=== PATIENT | male | born 2005 | race African-American/Black ===

== ENCOUNTER 2025-02-24 20:28 | Emergency (ER) | payer SELFPAY ==
--- NOTE | ~2025-02-24 | CT_ITS ---
CT abdomen pelvis w con Ordering provider: Ilia Wallace History: 19 years Male with . abd pain . Comparison: None. Technique: CT abdomen and pelvis with IV and without oral contrast. Automated exposure control and it erative reconstruction technique were employed. The dose-length product was 182.64 mGy-cm. 100 mL Omn ipaque 350 was given IV. Findings: VISUALIZED LOWER CHEST: Normal. UPPER ABDOMINAL ORGANS: Liver: Normal. Gallbladder: Normal. Spleen: Normal. Stomach/duodenum: Normal. Pancreas: Normal. Adrenals: Normal. Kidneys: Normal. PELVIC ORGANS: The bladder is underfilled. BOWEL AND MESENTERY: Colon: No evidence of diverticulitis. Fecal material is seen in the colon. Appendix is not demonstrated. Small Bowel: Normal. No obstruction. Peritoneum/mesentery: No free air or free fluid. No mesenteric lymphadenopathy. RETROPERITONEUM: Normal aorta. No retroperitoneal lymphadenopathy. MUSCULOSKELETAL: Superficial soft tissues: The superficial soft tissues are normal. Bones: Normal spine. IMPRESSION: 1. No evidence of appendicitis, diverticulitis or intestinal obstruction. Clinical correlation advis ed. 2. Constipation. Reviewed, dictated and finalized at location A. IMPRESSION: 1. No evidence of appendicitis, diverticulitis or intestinal obstruction. Clin ical correlation advised. 2. Constipation.
--- OUTSIDE RECORDS SUMMARY | 2025-02-24 20:30 | XMS_ITS | Clinical Summary ---
Author Organization [facility] Address [address] [place] [address] Care Team Providers Care Dealer Card Room Name Role Phone Unavailable Primary Care Provider Unavailabl e Source Comments [facility],non-owned Affiliates and Associated Physician Practices is amultiple site organization consisting of ambulatory clinics and hospital sitesin [place], [place], [place] and [place]. This disclosure is being madepursuant to the Care Everywhere program and may not contain all information available regarding this patient. Last updated 18.[facility] Allergies No known active allergies Medications * Be aware that medications may not be up to date on this document. Alwaysverify current medications with the patient. 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 Gender Identity Not on file Sexual Orientation Not on file Last Filed Vital Signs Vital Sign Reading Time Taken Comments Blood Pressure 108/72 02/25/2010 10:27 PM CDT Pulse 96 02/25/2010 10:27 PM CDT Temperature 36.8 C (98.2 F) 02/25/2010 10:27 PM CDT Respiratory Rate 26 02/25/2010 10:27 PM CDT Oxygen Saturation - - Inhaled Oxygen Concentration - - Weight 19.2 kg (42 lb 5.3 oz) 02/25/2010 10:27 P M CDT Height - - Body Mass Index - - Plan of Treatment Health Maintenance Due Date Last Done Comments HIV SCREENING 2019 HPV VACCINE (1 - Male 3-dose series) 2019 MENINGOCOCCAL (Group B) VACC INE SHARED DECISION-MAKING (1 of 2 - Standard) 2020 HEPATITIS C SCREENING 09/23/2022 DTAP/TDAP/TD VACCINES (1 - Tdap) 2023 HEPATITIS B VACCINE (1 of 3 - 19+ 3-dose series) 2023 COVID-19 VACCINE (2023-2 5 season) 2024 DEPRESSION SCREENING 08/17/2024 INFLUENZA VACCINE (#1) 2025 ZOSTER VACCINE (1 of 2) 2054 HIB VACCINE Aged Out No longer eligi ble based on patient's age to complete this topic MENINGOCOCCAL GROUPS A/C/Y/W VACCINE Aged Out No longer eligible b ased on patient's age to complete this topic PNEUMOCOCCAL VACCINE Aged Out No long er eligible based on patient's age to complete this topic
--- OUTSIDE RECORDS SUMMARY | 2025-02-24 20:30 | XMS_ITS | Continuity of Care Document ---
Author Organization [facility] Address [address] [place] [address] Phone Care Team Providers Care Art Model Name Role Phone Nolen OD, Lemuel Unavailable Unavailable Procedures Procedure Date Eye Exam, New Patient Refraction Advance Directives Directive Yes / No Effective Date File Name No Information Encounters Encounter Description Practice Location Reason(s) For Visit Diagnoses Date Provider Providers Copied on Encounter [facility], [address], [place], [place], [id number], [place] tel:[phone] [facility] No Information Apr-0 2-201 0 Nolen OD Lemuel. [address] , [address], [place], [address], [place]. tel:[phone] Family History Family Member Type Diagnosis Age At Onset No Information Payers Payer name Insurance type Covered alliance party ID Authoriza timelissa(s) Medicaid [facility] [id number] Social History Type Description Quantity Date Captured Comments Sex Male Smoking Status No Information Chief Complaint And Reason For Visit No Information Reason For Referral Reason For Referral No Information History Of Present Illness Encounter Date Complaint History Of Prese nt Illness No Information Functional Status Date Functional Assessmen t No Information Instructions Date Instruction Additional Infor mation No Information Assessments Type Assessment Date No Information Patient Care Teams Name Effective Dates (start - stop) Status Members No Information
[2025-02-24 20:32] VITALS: BP 139/71; PULSE 91; RESP 17; TEMP 36.2; O2SAT 100
[2025-02-24 20:53] LABS: Hematocrit 43.8 % (42.0-52.0); Hemoglobin 14.1 g/dL (14.0-18.0); Immature Granulocyte Percent A 0.2 % (0-0.5); Lymphocytes Absolute Auto 1.34 K/mm3 (0.9-3.2); Mean Corpuscular HGB Conc 32.2 g/dl (32-36); Mean Corpuscular Hemoglobin 27.8 pg (26-34); Mean Corpuscular Volume 86.4 fl (80-100); Nucleated Red Blood Cells Absolute Auto 0.000 K/mm3 (0.0-0.012); Nucleated Red Blood Cells Perc 0.0 % (0.0-0.2); Platelet Count Result 191 k/mm3 (150-375); Red Blood Count 5.07 M/mm3 (4.6-6.20); White Blood Count 6.5 K/mm3 (4.5-10.0)
[2025-02-24 21:10] LABS: Alanine Aminotransferase 21 U/L (6-50); Albumin Level 4.7 g/dL (3.5-5.1); Alkaline Phosphatase 79 U/L (38-126); Anion Gap 13 mmol/L (4-12); Aspartate Amino Transferase 32 U/L (17-59); Bilirubin,Total 1.2 mg/dL (0.2-1.3); Blood Urea Nitrogen 12 mg/dL (9-20); Calcium 9.8 mg/dL (8.4-10.2); Carbon Dioxide 20 mmol/L (22-30); Chloride 105 mmol/L (98-107); Estimated CRCL calculation 92 ml/min; Estimated Glomerular Filt Rate > 60; Glucose 99 mg/dL (65-110); Lipase 28 U/L (23-300); Potassium 3.6 mmol/L (3.4-5.0); Sodium 138 mmol/L (137-145); Total Protein 8.4 g/dL (6.3-8.2)
[2025-02-24] MEDS: SODIUM CHLORIDE 0.9% IV 1,000 ML 999 ML IV CONT (23:27)
--- OUTSIDE RECORDS SUMMARY | 2025-02-24 23:29 | XMS_ITS | Clinical Summary ---
Author Organization [facility] Address [address] [place] [address] Care Team Providers Care Fullerette Name Role Phone Unavailable Primary Care Provider Unavailabl e Source Comments [facility],non-owned Affiliates and Associated Physician Practices is amultiple site organization consisting of ambulatory clinics and hospital sitesin [place], [place], [place] and [place]. This disclosure is being madepursuant to the Care Everywhere program and may not contain all information available regarding this patient. Last updated 18.[employer] [facility] Allergies No known active allergies Medications * Be aware that medications may not be up to date on this document. Alwaysverify current medications with the patient. 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
--- OUTSIDE RECORDS SUMMARY | 2025-02-24 23:29 | XMS_ITS | Continuity of Care Document ---
Author Organization [facility] Address [address] [place] [address] Phone Care Team Providers Care Milling Operator Name Role Phone Nolen OD, Lemuel Unavailable Unavailable Procedures Procedure Date Eye Exam, New Patient Refraction Advance Directives Directive Yes / No Effective Date File Name No Information Encounters Encounter Description Practice Location Reason(s) For Visit Diagnoses Date Provider Providers Copied on Encounter [facility], [address], [place], [place], [id number], [place] tel:[phone] [facility] No Information Apr-0 2-201 0 Nolen OD Lemuel. [address] , [address], [place], [address], [place]. tel:[phone] Family History Family Member Type Diagnosis Age At Onset No Information Payers Payer name Insurance type Covered constitution party ID Authoriza timelissa(s) Medicaid [facility] [id number] Social History Type Description Quantity Date Captured [...]
--- NOTE | 2025-02-24 23:36 | ED_ITS ---
HPI - Abdominal Pain General Chief Complaint: Abdominal Pain <BLU Smith Last Filed: 03/06/25 17:08> Stated Complaint: INTERMITTENT ABD PAIN <BLU Smith Last Filed: 03/06/25 17:08> Time Seen by Provider: 02/24/25 23:15 <BLU Smith Last Filed: 03/06/25 17:08> Source: patient <BLU Smith Last Filed: 03/06/25 17:08> Mode of arrival: EMS <BLU Smith Last Filed: 03/06/25 17:08> Limitations: no limitations <BLU Smith Last Filed: 03/06/25 17:08> History of Present Illness HPI narrative: This is a 19-year-old male that presents to the emergency department for nausea and vomiting. Reports associated sore throat. Reports some reflux. Denies fevers, cough. <Carla Robison PA-C - Last Filed: 03/06/25 17:08> Related Data Allergies/Adverse Reactions: Allergies Allergy/AdvReac Type Severity Reaction Status Date / Time No Known Allergies Allergy Mild Verified 02/24/25 20:29 <BLU Smith Last Filed: 03/06/25 17:08> Review of Systems 2 Review of Systems: All systems reviewed & are unremarkable except as noted in HPI and below <BLU Smith Last Filed: 03/06/25 17:08> [facility], [facility] Past Medical History Medical History: Medical History (Updated 02/26/25 @ 00:00 by Background Daemon) No active medical problems <BLU Smith Last Filed: 03/06/25 17:08> Exam 2 Narrative: GENERAL: Well-appearing, well-nourished, and in no acute distress. HEAD: Normocephalic, atraumatic. EYES: EOMI. ENT: Nares clear, no rhinorrhea or epistaxis. Mucous membranes moist. Oropharynx with tonsillar hypertrophy, erythema and exudate, no other lesions. Bilateral TMs pearly dennis non-bulging NECK: Supple. No adenopathy or masses. CHEST: Clear to auscultation. No respiratory distress. No wheezes rales or rhonchi HEART: Regular rate and rhythm. No murmur heard. Normal peripheral pulses. ABDOMEN: Soft, nontender, nondistended, normal active bowel sounds. EXTREMITIES: Normal range of motion. No edema. SKIN: Warm, dry, no rash. NEURO: No focal deficits. Alert and oriented x3. PSYCH: Normal mood and affect <Carla Robison PA-C - Last Filed: 03/06/25 17:08> Course JUNIOR ACCOUNTANT BOOKKEEPER/PA Physician Supervision For this patient encounter, I reviewed the JUNIOR ACCOUNTANT BOOKKEEPER or PA documentation, treatment plan, and medical decision making and had [id number] time with this patient. I performed all aspects of the MDM as documented. <Ilia Wallace MD - Last Filed: 02/25/25 02:05> Vital Signs Vital signs: Vital Signs Temperature 97.1 F L 02/24/25 20:32 Pulse Rate 91 02/24/25 20:32 Respiratory Rate 17 02/24/25 20:32 Blood Pressure 139/71 02/24/25 20:32 Pulse Oximetry 100 02/24/25 20:32 Oxygen Delivery Room Air 02/24/25 20:32 Temperature 97.1 F L 02/24/25 20:32 Pulse Rate 83 02/25/25 02:31 Respiratory Rate 13 02/25/25 02:31 Blood Pressure 133/74 02/25/25 02:31 Pulse Oximetry 100 02/25/25 02:31 Oxygen Delivery Room Air 02/24/25 20:32 <Carla Robison PA-C - Last Filed: 03/06/25 17:08> Vital Signs Temperature 97.1 F L 02/24/25 20:32 Pulse Rate 91 02/24/25 20:32 Respiratory Rate 17 02/24/25 20:32 Blood Pressure 139/71 02/24/25 20:32 Pulse Oximetry 100 02/24/25 20:32 Oxygen Delivery Room Air 02/24/25 20:32 Temperature 97.1 F L 02/24/25 20:32 Pulse Rate 83 02/25/25 02:31 Respiratory Rate 13 02/25/25 02:31 Blood Pressure 133/74 02/25/25 02:31 Pulse Oximetry 100 02/25/25 02:31 Oxygen Delivery Room Air 02/24/25 20:32 <Ilia Wallace MD - Last Filed: 02/25/25 02:05> MDM - Abdominal Pain MDM Narrative Medical decision making narrative: Patient presents the emergency department for abdominal discomfort, nausea, vomiting. Also endorsing sore throat. He is afebrile and nontoxic appearing. His vitals are stable. Cbc without leukocytosis. Metabolic panel and urine with some evidence of dehydration. Patient hydrated with 2 L of IV fluids. CT abdomen and pelvis without acute findings. Strep, influenza, RSV, COVID screens are negative. Patient updated on his workup. Instructed on continued care of viral infection. He is to follow up with primary provider. He was given warnings to return to the ER <Carla Robison PA-C - Last Filed: 03/06/25 17:08> Patient presents the emergency department for abdominal discomfort, nausea, vomiting. Also endorsing sore throat. He is afebrile and nontoxic appearing. His vitals are stable. Cbc without leukocytosis. Metabolic panel and urine with some evidence of dehydration. Patient hydrated with 2 L of IV fluids. CT abdomen and pelvis without acute findings. Strep, influenza, RSV, COVID screens are negative. Monospot test negative. Patient updated on his workup. Instructed on continued care of viral infection. He is to follow up with primary provider. He was given warnings to return to the ER. <Ilia Wallace MD - Last Filed: 02/25/25 02:05> Differential Diagnosis Differential diagnosis: Likely gastroenteritis, pancreatitis, small bowel obstruction and other (GERD, gastritis, esophagitis, strep, mono, covid, flu) <Carla Robison PA-C - Last Filed: 03/06/25 17:08> Lab Data Attestation: I reviewed the patient's lab results. <Carla Robison PA-C - Last Filed: 03/06/25 17:08> Result diagrams: 02/24/25 20:44 02/24/25 20:44 <Carla Robison PA-C - Last Filed: 03/06/25 17:08> Labs: Lab Results 02/24/25 02/25/25 02/25/25 Range/Units 20:44 00:56 00:57 WBC 6.5 (4.5-10.0) K/mm3 RBC 5.07 (4.6-6.20) M/mm3 Hgb 14.1 (14.0-18.0) g/dL Hct 43.8 (42.0-52.0) % MCV 86.4 (80-100) fl MCH 27.8 (26-34) pg MCHC 32.2 (32-36) g/dl RDW 12.7 (11.5-14.5) % Plt Count 191 (150-375) k/mm3 MPV 10.2 (7.4-10.4) fl Immature Gran % (Auto) 0.2 (0-0.5) % Neut % (Auto) 66.2 (45.5-73.1) % Lymph % (Auto) 20.5 (18.3-44.2) % [place] % (Auto) 12.7 H (2.6-8.5) % Eos % (Auto) 0.2 (0-4.4) % Baso % (Auto) 0.2 (0.2-1.2) % Lymph # (Auto) 1.34 (0.9-3.2) K/mm3 [place] # (Auto) 0.8 H (0.1-0.6) K/mm3 Eos # (Auto) 0.0 (0-0.3) K/mm3 Baso # (Auto) 0.0 (0.0-0.1) K/mm3 Abs Immat Gran (auto) 0.01 (0.00-0.031) K/mm3 Absolute Neuts (auto) 4.3 (1.3-6.7) K/mm3 Absolute Nucleated RBC 0.000 (0.0-0.012) K/mm3 Nucleated RBC % 0.0 (0.0-0.2) % Sodium 138 (137-145) mmol/L Potassium 3.6 (3.4-5.0) mmol/L Chloride 105 (98-107) mmol/L Carbon Dioxide 20 L (22-30) mmol/L Anion Gap 13 H (4-12) mmol/L BUN 12 (9-20) mg/dL Creatinine 1.10 (0.7-1.3) mg/dL Estim Creat Clear Calc 92 ml/min Estimated GFR > 60 (59 - ) Glucose 99 (65-110) mg/dL Calcium 9.8 (8.4-10.2) mg/dL Total Bilirubin 1.2 (0.2-1.3) mg/dL AST 32 (17-59) U/L ALT 21 (6-50) U/L Alkaline Phosphatase 79 (38-126) U/L Total Protein 8.4 H (6.3-8.2) g/dL Albumin 4.7 (3.5-5.1) g/dL Lipase 28 (23-300) U/L Urine Color Yellow (Yellow) Urine Appearance Clear (Clear) Urine pH 5.5 (5.0-9.0) Ur Specific Antoine > 1.045 H (1.001-1.035) Urine Protein 1+ H (Negative) mg/dL Urine Glucose (UA) Negative (Negative) mg/dL Urine Ketones 3+ H (Negative) mg/dL Ur Blood (Man) Negative (Negative) Urine Nitrate Negative (Negative) Urine Bilirubin Negative (Negative) Urine Urobilinogen 1.0 (<2.0) mg/dL Leukocyte Esterase Rfl Negative (Negative) BRIANNA/UL Urine RBC 0-2 (0-2) /hpf Urine WBC 0-5 (0-3) /hpf Ur Squamous Epith Cells None seen (Few) /hpf Urine Bacteria None seen /hpf Urine Casts 0-2 Monoscreen Negative (Negative) Influenza A (RT-PCR) Negative (Negative) Influenza B (RT-PCR) Negative (Negative) RSV (RT-PCR) Negative (Negative) SARS-CoV-2 RNA (RT-PCR) Negative (Negative) Group A Strep (PCR) Not detected (Negative) <Carla Robison PA-C - Last Filed: 03/06/25 17:08> Lab Results 02/24/25 02/25/25 02/25/25 Range/Units 20:44 00:56 00:57 WBC 6.5 (4.5-10.0) K/mm3 RBC 5.07 (4.6-6.20) M/mm3 Hgb 14.1 (14.0-18.0) g/dL Hct 43.8 (42.0-52.0) % MCV 86.4 (80-100) fl MCH 27.8 (26-34) pg MCHC 32.2 (32-36) g/dl RDW 12.7 (11.5-14.5) % Plt Count 191 (150-375) k/mm3 MPV 10.2 (7.4-10.4) fl Immature Gran % (Auto) 0.2 (0-0.5) % Neut % (Auto) 66.2 (45.5-73.1) % Lymph % (Auto) 20.5 (18.3-44.2) % [place] % (Auto) 12.7 H (2.6-8.5) % Eos % (Auto) 0.2 (0-4.4) % Baso % (Auto) 0.2 (0.2-1.2) % Lymph # (Auto) 1.34 (0.9-3.2) K/mm3 [place] # (Auto) 0.8 H (0.1-0.6) K/mm3 Eos # (Auto) 0.0 (0-0.3) K/mm3 Baso # (Auto) 0.0 (0.0-0.1) K/mm3 Abs Immat Gran (auto) 0.01 (0.00-0.031) K/mm3 Absolute Neuts (auto) 4.3 (1.3-6.7) K/mm3 Absolute Nucleated RBC 0.000 (0.0-0.012) K/mm3 Nucleated RBC % 0.0 (0.0-0.2) % Sodium 138 (137-145) mmol/L Potassium 3.6 (3.4-5.0) mmol/L Chloride 105 (98-107) mmol/L Carbon Dioxide 20 L (22-30) mmol/L Anion Gap 13 H (4-12) mmol/L BUN 12 (9-20) mg/dL Creatinine 1.10 (0.7-1.3) mg/dL Estim Creat Clear Calc 92 ml/min Estimated GFR > 60 (59 - ) Glucose 99 (65-110) mg/dL Calcium 9.8 (8.4-10.2) mg/dL Total Bilirubin 1.2 (0.2-1.3) mg/dL AST 32 (17-59) U/L ALT 21 (6-50) U/L Alkaline Phosphatase 79 (38-126) U/L Total Protein 8.4 H (6.3-8.2) g/dL Albumin 4.7 (3.5-5.1) g/dL Lipase 28 (23-300) U/L Urine Color Yellow (Yellow) Urine Appearance Clear (Clear) Urine pH 5.5 (5.0-9.0) Ur Specific Antoine > 1.045 H (1.001-1.035) Urine Protein 1+ H (Negative) mg/dL Urine Glucose (UA) Negative (Negative) mg/dL Urine Ketones 3+ H (Negative) mg/dL Ur Blood (Man) Negative (Negative) Urine Nitrate Negative (Negative) Urine Bilirubin Negative (Negative) Urine Urobilinogen 1.0 (<2.0) mg/dL Leukocyte Esterase Rfl Negative (Negative) BRIANNA/UL Urine RBC 0-2 (0-2) /hpf Urine WBC 0-5 (0-3) /hpf Ur Squamous Epith Cells None seen (Few) /hpf Urine Bacteria None seen /hpf Urine Casts 0-2 Monoscreen Negative (Negative) Influenza A (RT-PCR) Negative (Negative) Influenza B (RT-PCR) Negative (Negative) RSV (RT-PCR) Negative (Negative) SARS-CoV-2 RNA (RT-PCR) Negative (Negative) Group A Strep (PCR) Not detected (Negative) <Ilia Wallace MD - Last Filed: 02/25/25 02:05> Imaging Data Radiologist's impression: ITS Impressions Abdomen/Pelvis CT 02/24/25 23:42 IMPRESSION: 1. No evidence of appendicitis, diverticulitis or intestinal obstruction. Clinical correlation advised. 2. Constipation. <Carla Robison PA-C - Last Filed: 03/06/25 17:08> ITS Impressions Abdomen/Pelvis CT 02/24/25 23:42 IMPRESSION: 1. No evidence of appendicitis, diverticulitis or intestinal obstruction. Clinical correlation advised. 2. Constipation. <Ilia Wallace MD - Last Filed: 02/25/25 02:05> Critical Care Time Critical Care Time Critical Care Time: No <Carla Robison PA-C - Last Filed: 03/06/25 17:08> Discharge Plan Discharge Clinical Impression: Acute viral syndrome, Dehydration <BLU Smith Last Filed: 03/06/25 17:08> Patient Disposition: Home <BLU Smith Last Filed: 03/06/25 17:08> Condition: Stable <BLU Smith Last Filed: 03/06/25 17:08> Instructions: Dehydration (ED), Acute Nausea and Vomiting (ED), Viral Syndrome (ED) <BLU Smith Last Filed: 03/06/25 17:08> Additional Instructions: Return to the emergency department for worsening symptoms, or any other concerns Remain well-hydrated, get plenty of rest. Take Tylenol or Motrin [id number] for pain as needed. Flonase for nasal congestion. Zyrtec for runny nose. Lozenges or Chloraseptic spray for sore throat. Ondansetron as needed for nausea Follow up with primary care doctor <Carla Robison PA-C - Last Filed: 03/06/25 17:08> Patient Language: Swazi <BLU Smith Last Filed: 03/06/25 17:08> Prescriptions: New ondansetron 4 mg tablet,disintegrating 4 mg PO Q8H PRN (Reason: nausea and vomiting) Qty: 10 0RF <BLU Smith Last Filed: 03/06/25 17:08> Follow-up/Referrals: Buster Alvarenga MD [Primary Care Provider] - <Carla Robison PA-C - Last Filed: 03/06/25 17:08>
[2025-02-24] MEDS: ONDANSETRON INJ 4 MG/2 ML VIAL IV PUSH (23:53)
[2025-02-24] MEDS: FAMOTIDINE 20 MG/2 ML VIAL IV PUSH (23:53)
[2025-02-25] VITALS (14 sets, daily range): BP systolic 111–151; BP diastolic 52–85; PULSE 76–105; RESP 10–27; O2SAT 94–100
[2025-02-25 01:14] LABS: Add Urine Microscopic? YES; Appearance Urine Clear (Clear); Glucose Urine UA Negative (Negative); Leukocyte Esterase Ur Negative LEU/UL (Negative); Nitrate Urine Negative (Negative); Non Pathogenic Casts 0-2; Specific Grav Ur > 1.045 (1.001-1.035)
[2025-02-25 01:33] LABS: Strep Group A RT-PCR NOT DETECTED (Negative)
[2025-02-25] MEDS: LACTATED RINGERS 1,000 ML 999 ML IV CONT (01:42)
[2025-02-25 01:47] LABS: Influenza A QL RT-PCR Negative (Negative); Influenza B QL RT-PCR Negative (Negative); RSV RNA, RT-PCR Negative (Negative); SARS-CoV-2 RNA PCR Negative (Negative)
[2025-02-25 01:55] LABS: Negative Monotest Control Negative (Negative); Positive Monotest Control Positive (Positive)
== END 2025-02-25 03:05 | disposition home or self-care (01) ==
PROVIDERS: Physician Assistant; Emergency Provider Emergency Medicine; PCP Pediatrics
DX: B34.9 Viral infection, unspecified (principal); E86.0 Dehydration; Z20.822 Contact with and (suspected) exposure to COVID-19; K59.00 Constipation, unspecified
CPT/HCPCS: 36415; 74177; 80053; 81001; 83690; 85025; 86308; 87637; 87651; 96361; 96374; 96375; 99284; J2405; J7030; J7120; Q9967